=== PATIENT | male | born 1950 | race Caucasian/White ===

== ENCOUNTER 2017-01-05 21:08 | Emergency (ER) | payer MEDICARE, BC ==
[~2017-01-05] VITALS: Ht 182.9 cm; Wt 99.0 kg
[2017-01-05 21:08] VITALS: Ht 182.9 cm; Wt 99.0 kg
--- OUTSIDE RECORDS SUMMARY | 2017-01-05 21:12 | XMS REPORT | Summary of Care ---
Author Author Rick CONTEH, Anjelica Organization Unknown Address [address], [place] [id number] Phone Unavailable Care Team Providers Care Instrument Repair Supervisor Name Role Phone Andrew Brady, GIUSEPPE, ,, [place] Unavailable Unavailable Kylie Strong Unavailable Unavailable Unavailable Unavailable Functional Status Name Dates Details Functional status health issues are not documented Status: Name Dates Details Cognitive status health issues are not documented Status: Problems Name Dates Details Cellulitis Hands Right Status: Active Abdominal pain, epigastric (789.06, R10.13) Status: Active Diabetes mellitus (250.00, E11.9) Status: Active Aphthous ulcer (528.2, K12.0) Status: Active Herpes zoster (053.9, B02.9) Status: Active Elevated prostate specific antigen (PSA) (790.93, R97.2) Status: Active Pelvic pain in male (789.09, R10.2) Status: Active Benign prostatic hypertrophy (600.00, N40.0) Status: Active Chronic prostatitis (601.1, N41.1) Status: Active Pseudophakia of right eye (V43.1, Z96.1) Status: Active ERM OD (epiretinal membrane, right eye) (362.56, H35.371) Status: Active Medications Name Dates Details Terazosin HCl - 2 MG Oral Capsule Take one capsule by mouth daily Quantity: 90 Andrew Brady, GIUSEPPE, , Philip * Start 03-Jun-2016 Active Multivitamins Oral Capsule * Refills: 0 * Start 17-Aug-2012 Active Fish Oil 1000 MG Oral Capsule * Refills: 0 * Start 17-Aug-2012 Active GlipiZIDE 5 MG Oral Tablet * Refills: 0 * Start 17-Aug-2012 Active Losartan Potassium 25 MG Oral Tablet * Refills: 0 * Start 17-Aug-2012 Active Saw [place] 450 MG Oral Capsule * Refills: 0 * Start 17-Aug-2012 Active Simvastatin 10 MG Oral Tablet * Refills: 0 Active Finasteride 5 MG Oral Tablet take one tablet by mouth every day * Quantity: 90 Refills: 3 Andrew Brady, GIUSEPPE, , , Philip M * Start 08-Sep-2013 Active Hyophen 81.6 MG Oral Tablet Take one tablet twice daily * Quantity: 180 Refills: 3 Andrew Brady, GIUSEPPE, , , Philip M * Start 17-Feb-2015 Active Aspirin Low Dose 81 MG TABS * Refills: 0 Active Allergies and Adverse Reactions Name Dates Details No Known Drug Allergies (Allergy) Status: Active Past Medical History Name Dates Details History of 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.19, H25.811) Status: Resolved History of Nephrolithiasis (V13.01) Status: Resolved History of Reported Cholesterol Level Was High Status: Resolved History of sleep apnea (V13.89, Z87.09) Status: Resolved Procedures Procedure Dates Details History of Diagnostic Esophagogastroduodenoscopy Completed: 29-Dec-2009 History of Complete Colonoscopy For Polyp Removal Completed: 03-Jan-2010 History of Appendectomy History of Knee Arthroscopy History of Extracaps Cataract Extract With Prosthesis Insert Right Eye Procedures not documented Immunization Name Dates Details Immunizations not documented Family History Name Dates Details Family history of Hypertension (V17.49) Status: Active Family history of Diabetes Mellitus (V18.0) Status: Active Family history of Cancer Status: Active Social History Name Dates Details - Status: Name Dates Details Never smoker Vital Signs Date Test Result Details No Known Vitals to report Results Date Description Value Details Results not documented Plan of Care Name Dates Details Planned Observations Planned Goals not documented Interventions Provided Medication Changes* Terazosin HCl - 2 MG Oral Capsule - Renew Instructions Name Dates Details Instructions not documented Encounters Appointment; Judah Ma M.D. Encounter Diagnosis: Problem not documented On 19-Dec-2015 14:15 Appointment; Judah Ma M.D. Encounter Diagnosis: Problem not documented On 29-Sep-2015 13:30 Appointment; Judah Ma M.D. Encounter Diagnosis: Problem not documented On 19-Sep-2015 16:15 Appointment; Judah Ma M.D. Encounter Diagnosis: Problem not documented On 19-Sep-2015 11:15 Appointment; Judah Ma M.D. Encounter Diagnosis: Problem not documented On 05-Sep-2015 08:15 Appointment; Judah Ma M.D. Encounter Diagnosis: Problem not documented On 22-Aug-2015 14:30 Appointment; Philip Morales M.D.|[place]|Jose Antonio,GIUSEPPE|Jose Antonio,GIUSEPPE, Encounter Diagnosis: Problem not documented On 10:45"
--- OUTSIDE RECORDS SUMMARY | 2017-01-05 21:12 | XMS REPORT | Referral Summary ---
Author Organization Unknown Address Unknown Phone Unavailable Care Team Providers Care Pot Room Supervisor Name Role Phone LigiaEvy Primary Care Physician [phone] Encounter VC Date(s): 12/01/14 - 12/01/14 [facility] [place] [address], [facility] [address] [place], [place] [address] Discharge Diagnosis: Obstructive sleep apnea, adult Discharge Disposition: Home or Self Care Attending Physician: Philip Zapata MD Admitting Physician: Philip Zapata MD Vital Signs Most recent to 1 oldest [Reference Range]: Peripheral Pulse 67 bpm Rate [60-100 bpm] (12/01/14 10:41 AM) Blood Pressure 130/70 mmHg [90-140/60-90 mmHg] (12/01/14 10:41 AM) Most recent to 1 oldest [Reference Range]: SpO2 93 % (12/01/14 10:41 AM) Problem List Condition Effective Dates Status Health Status Informant Obesity(Confirmed) Active patient Obstructive sleep Active apnea, adult(Confirmed) Allergies, Adverse Reactions, Alerts No Known Medication Allergies Medications finasteride 5 mg oral tablet 1 tabs, Oral, Daily, # 30 tabs, 0 Refill(s) Start Date: 08/25/14 Status: Ordered glipiZIDE 5 mg oral tablet 1.5 tabs, Oral, Daily, as directed, # 30 tabs, 0 Refill(s) Special Instructions: as directed Start Date: 08/25/14 Status: Ordered losartan 100 mg oral tablet 1 tabs, Oral, Daily, # 30 tabs, 0 Refill(s) Start Date: 08/25/14 Status: Ordered simvastatin 10 mg oral tablet 1 tabs, Oral, Bedtime (once a day), # 30 tabs, 0 Refill(s) Start Date: 08/25/14 Status: Ordered terazosin 2 mg oral capsule 1 caps, Oral, Bedtime (once a day), # 30 caps, 0 Refill(s) Start Date: 08/25/14 Status: Ordered Results No data available for this section Immunizations No data available for this section Procedures No data available for this section Social History Social History Type Response Smoking Status Never smoker Assessment and Plan Extracted from: Title: Office Visit Note Author: Philip Zapata MD Date: 12/01/14 Assessment/Plan Obstructive sleep apnea, adult Assessment: The patient is complying with treatment and he is benefiting. He meets Medicare requirements for ongoing treatment. No changes are needed. Plan: We reviewed his compliance download together. He is going to continue CPAP at the current pressure. He prefers a PRN return. He will be in touch if there are any problems.
--- OUTSIDE RECORDS SUMMARY | 2017-01-05 21:12 | XMS REPORT | Continuity of Care Document ---
Author Author [facility] Organization [facility] Address Unknown Phone Unavailable Allergies Active Description Code Type Severity Reaction Onset Reported/Identified Relationship to Patient Clinical Status Yes NKA Drug Allergy N/A N/A Yes No Known Allergies [id number] 3 N/A N/A 09/18/1009 Yes No Known Medication Allergies NKMA N/A N/A 08/25/2014 Medications Problems Date Dx Coded Attending Type Code Diagnosis Diagnosed By 02/26/2016 W G89.29 Other chronic pain 02/26/2016 W M25.512 Chronic left shoulder pain 02/26/2016 W M75.02 Adhesive capsulitis of left shoulder 03/11/2016 W G89.29 Other chronic pain 03/11/2016 W M25.512 Chronic left shoulder pain 03/11/2016 W M75.02 Adhesive capsulitis of left shoulder 04/01/2016 W G89.29 Other chronic pain 04/01/2016 W M25.512 Chronic left shoulder pain 04/01/2016 W M75.02 Adhesive capsulitis of left shoulder 04/02/2016 W G89.29 Other chronic pain 04/02/2016 W M25.512 Chronic left shoulder pain 04/02/2016 W M75.02 Adhesive capsulitis of left shoulder 04/02/2016 W M75.122 Complete tear of left rotator cuff 04/08/2016 W G89.29 Other chronic pain 04/08/2016 W M25.512 Chronic left shoulder pain 04/08/2016 W M75.02 Adhesive capsulitis of left shoulder 04/18/2016 W M25.9 Joint disorder, unspecified 04/18/2016 W M75.02 Adhesive capsulitis of left shoulder 04/18/2016 W M75.122 Complete rotatr-cuff tear/ruptr of left shoulder, not trauma 04/18/2016 W M75.42 Impingement syndrome of left shoulder 04/19/2016 W G89.29 Other chronic pain 04/19/2016 W M25.512 Chronic left shoulder pain 04/19/2016 W M75.02 Adhesive capsulitis of left shoulder 05/24/2016 W G89.29 Other chronic pain 05/24/2016 W M25.512 Chronic left shoulder pain 05/24/2016 W M75.02 Adhesive capsulitis of left shoulder 05/29/2016 W Z98.89 S/P rotator cuff repair 06/21/2016 W G89.29 Other chronic pain 06/21/2016 W M25.512 Chronic left shoulder pain 06/21/2016 W M75.02 Adhesive capsulitis of left shoulder 07/29/2016 W G89.29 Other chronic pain 07/29/2016 W M25.512 Chronic left shoulder pain 07/29/2016 W M75.02 Adhesive capsulitis of left shoulder Procedures Code Description [place] [address] X-RAY EXAM OF SHOULDER 02/26/2016 08059 OFFICE/OUTPATIENT VISIT NEW 02/26/2016 28884 OFFICE/OUTPATIENT VISIT EST 04/01/2016 04461 SHOULDER ARTHROSCOPY/SURGERY 04/11/2016 14128 SHOULDER ARTHROSCOPY/SURGERY 04/11/2016 82251 SHOULDER ARTHROSCOPY/SURGERY 04/11/2016 96944 ARTHROSCOP ROTATOR CUFF REPR 04/11/2016 26916 X-RAY EXAM OF SHOULDER 05/24/2016 36062 POSTOP FOLLOW-UP VISIT 05/24/2016 Results Encounters ACCT No. Visit Date/Time Discharge Status Pt. Type Provider Facility Loc./Unit Complaint [id number] 09/05/2016 09:23:00 2015 11:52:00 DIS Outpatient Shaquille Gonzalez [facility] COLONP [id number] 08/16/2016 13:14:00 2015 23:59:00 DIS Outpatient Galdino Francis [facility] CP PST DIANE PT 2014 CPAP NEEDS SUPPLIES [id number] 12/01/2014 10:34:00 2014 23:59:00 DIS Outpatient Philip Zapata [facility] New 2 MO CK CPAP-MC CMPLNCE
--- OUTSIDE RECORDS SUMMARY | 2017-01-05 21:12 | XMS REPORT | Summary of Care ---
Author Author Andrew Brady, GIUSEPPE, ,, Philip M Organization Unknown Address [address] [place], [place] [id number] Phone Unavailable Care Team Providers Care Resolution Specialist Name Role Phone Andrew Brady, GIUSEPPE, ,, M Unavailable Unavailable Freddie Brady, Elayne Unavailable Unavailable Anjelica Cabrera PA-C Unavailable Unavailable Kylie Strong PP Unavailable Unavailable Unavailable Functional Status Functional Status Health Issues* Name Dates Details Functional status health issues are not documented Status: Cognitive Status Health Issues* Name Dates Details Cognitive status health issues are not documented Status: Problems Name Dates Details Cellulitis Hands Right Status: Active Abdominal pain, epigastric (789.06, R10.13) Status: Active Diabetes mellitus (250.00, E11.9) Status: Active Aphthous ulcer (528.2, K12.0) Status: Active Herpes zoster (053.9, B02.9) Status: Active Elevated prostate specific antigen (PSA) (790.93, R97.2) Status: Active Benign prostatic hypertrophy (600.00, N40.0) Status: Active Pelvic pain in male (789.09, R10.2) Status: Active Medications Name Dates Details Terazosin HCl - 2 MG Oral Capsule TAKE 1 CAPSULE DAILY. Tia Frazier M.D.* Started 16-Jan-2010 ActiveMultivitamins Oral Capsule * Refills: 0 * Started 17-Aug-2012 ActiveFish Oil 1000 MG Oral Capsule * Refills: 0 * Started 17-Aug-2012 ActiveGlipiZIDE 5 MG Oral Tablet * Refills: 0 * Started 17-Aug-2012 ActiveLosartan Potassium 25 MG Oral Tablet * Refills: 0 * Started 17-Aug-2012 ActiveSaw [place] 450 MG Oral Capsule * Refills: 0 * Started 17-Aug-2012 ActiveSimvastatin 10 MG Oral Tablet * Refills: 0 ActiveFinasteride 5 MG Oral Tablet take one tablet by mouth every day * Quantity: 90 Refills: 1 Anjelica Cabrera PA-C* Started 08-Sep-2013 ActiveHyophen 81.6 MG Oral Tablet Take one tablet twice daily * Quantity: 180 Refills: 3 Philip Morales M.D., FACS, , * Started 17-Feb-2015 Active Allergies and Adverse Reactions Name Dates Details No Known Drug Allergies Status: Active Past Medical History Name Dates Details History of Nephrolithiasis (V13.01) Status: Resolved History of Reported Cholesterol Level Was High Status: Resolved History of sleep apnea (V13.89, Z87.898) Status: Resolved Procedures Procedure Dates Details History of Diagnostic Esophagogastroduodenoscopy Completed:29-Dec-2009 History of Complete Colonoscopy For Polyp Removal Completed:03-Jan-2010 History of Appendectomy History of Knee Arthroscopy PSA ( PROSTATE SPECIFIC ANTIGEN) 3100 Ordered: Immunization Name Dates Details Immunizations not documented Family History Mother* Name Dates Details Family history of Hypertension (V17.49) Status: Active Family history of Diabetes Mellitus (V18.0) Status: Active Family history of Cancer Status: Active Social History Name Dates Details Smoking Status* Never smoker Vital Signs Date Test Result Details No Known Vitals to report Results Date Description Value Details Results not documented Plan of Care Planned Observations* Name Dates Details Planned Goals not documented Goal Planned Encounters* Appointment; Provider: Philip Morales On 10:45 Instructions * Instructions not documented Encounters Appointment; Philip Morales Encounter Diagnosis: Problem not documented On 10:15 Appointment; Philip Morales Encounter Diagnosis: Problem not documented On 10:15 Appointment; Philip Morales Encounter Diagnosis: Problem not documented On 08-Sep-2013 14:15 Appointment; Philip Morales Encounter Diagnosis: Problem not documented On 01-Sep-2013 12:30 Appointment; Philip Morales Encounter Diagnosis: Problem not documented On 11-Aug-2013 10:00
--- OUTSIDE RECORDS SUMMARY | 2017-01-05 21:13 | XMS REPORT ---
Author Author GENERATED, SYSTEM Organization Unknown Address Unknown Phone Unavailable Care Team Providers Care Infirmary Attendant Name Role Phone MD ANYA, MARIO [phone] Reason For Visit Chief Complaint FOOT PAIN Social History Functional Status Vital Signs Results Problems Encounter Diagnosis No relevant problems exist. Encounters Encounter Diagnosis No relevant problems exist. Plan of Care Procedures * Completed , on 12/05/2010 12:00 AM * Completed , on 12/05/2010 12:00 AM * Completed , on 12/05/2010 12:00 AM Immunizations No immunizations administered or ordered. Hospital Course Hospital Discharge Instructions Allergies, Adverse Reactions, Alerts * Latex Allergy has not been assessed. * IV Contrast Allergy has not been assessed. Medication Medication reconciliation has not been performed.
--- OUTSIDE RECORDS SUMMARY | 2017-01-05 21:13 | XMS REPORT | Summary of Care ---
Author Author Andrew Brady, GIUSEPPE, ,Philip Organization Unknown Address Unknown Phone Unavailable Care Team Providers Care Sales Closer Name Role Phone Andrew Brady, GIUSEPPE, M Unavailable Unavailable Kylie Strong PP Unavailable Unavailable [...] MG Oral Capsule TAKE 1 CAPSULE DAILY. Quantity: 90 Philip Morales M.D., GIUSEPPE, , * Started 16-Jan-2010 ActiveMultivitamins Oral Capsule * Refills: 0 * Started 17-Aug-2012 ActiveFish Oil 1000 MG Oral Capsule * Refills: 0 * Started 17-Aug-2012 ActiveGlipiZIDE 5 MG Oral Tablet * Refills: 0 * Started 17-Aug-2012 ActiveLosartan Potassium 25 MG Oral Tablet * Refills: 0 * Started 17-Aug-2012 ActiveSaw [place] 450 MG Oral Capsule * Refills: 0 * Started 17-Aug-2012 ActiveSimvastatin 10 MG Oral Tablet * Refills: 0 ActiveFinasteride 5 MG Oral Tablet take one tablet by mouth every day * Quantity: 90 Refills: 3 Philip Morales M.D., GIUSEPPE, , * Started 08-Sep-2013 ActiveHyophen 81.6 MG Oral Tablet Take one tablet twice daily * Quantity: 180 Refills: 3 Philip Morales M.D., GIUSEPPE, , * Started 17-Feb-2015 ActiveAspirin Low Dose 81 MG TABS * Refills: [...] Dates Details Planned Goals not documented Goal Instructions * Instructions not documented Encounters Appointment; Judah Ma Encounter Diagnosis: Problem not documented On 19-Dec-2015 14:15 Appointment; Judah Ma Encounter Diagnosis: Problem not documented On 29-Sep-2015 13:30 Appointment; Judah Ma Encounter Diagnosis: Problem not documented On 19-Sep-2015 16:15 Appointment; Judah Ma Encounter Diagnosis: Problem not documented On 19-Sep-2015 11:15 Appointment; Judah Ma Encounter Diagnosis: Problem not documented On 05-Sep-2015 08:15 Appointment; Judah Ma Encounter Diagnosis: Problem not documented On 22-Aug-2015 14:30 Appointment; Philip Morales Encounter Diagnosis: Problem not documented On 10:45
--- OUTSIDE RECORDS SUMMARY | 2017-01-05 21:13 | XMS REPORT | Summary of Care ---
Author Author Andrew Brady, GIUSEPPE, ,, Philip M Organization Unknown Address [address] [place], [place] [id number] Phone Unavailable Care Team Providers Care Camera Prototyping Engineer Name Role Phone Andrew Brady, GIUSEPPE, ,, [place] Unavailable Unavailable Freddie Brady, Elayne Unavailable Unavailable [...] * Refills: 0 * Started 17-Aug-2012 ActiveSaw [place] 450 MG Oral Capsule * Refills: 0 * Started 17-Aug-2012 ActiveSimvastatin 10 MG Oral Tablet * Refills: 0 ActiveCiprofloxacin HCl - 500 MG Oral Tablet TAKE ONE CIPRO 500MG ONE HOUR BEFORE PROCEDURE. TAKE ONE THE EVENING AFTER PROCEDURE AND ONE THE FOLLOWING MORNING * Quantity: 3 Refills: 0 Philip Morales M.D., FACS, , * Started 11-Aug-2013 ActiveFinasteride 5 MG Oral Tablet take one tablet by mouth every day * Quantity: 90 Refills: 1 Anjelica Cabrera PA-C* Started 08-Sep-2013 Active Allergies and Adverse Reactions Name Dates [...] History of Appendectomy History of Knee Arthroscopy URINE CULTURE 5010 Ordered:21-Dec-2014 Immunization Name Dates Details Immunizations not documented [...]
--- OUTSIDE RECORDS SUMMARY | 2017-01-05 21:13 | XMS REPORT | Referral Summary ---
Author Author [facility] Organization [facility] Address Unknown Phone Unavailable Care Team Providers Care Photo Journalist Name Role Phone LigiaEvy Primary Care Physician [phone] Encounter VC Date(s): 09/05/16 - 09/05/16 [facility] [address] [place] [address] Discharge Diagnosis: Screening for colorectal cancer Discharge Diagnosis: History of colon polyps Discharge Disposition: 01-Home or Self Care Attending Physician: Shaquille Gonzalez III, MD Admitting Physician: Shaquille Gonzalez III, MD Vital Signs Most recent to 1 oldest [Reference Range]: Temperature Oral 36.7 degC [35.8-37.3 degC] (09/05/16 9:50 AM) Peripheral Pulse 85 bpm Rate [60-100 bpm] (09/05/16 9:50 AM) Respiratory Rate 22 br/min [14-20 br/min] *HI* (09/05/16 9:50 AM) Blood Pressure 127/76 mmHg [90-140/60-90 mmHg] (09/05/16 9:50 AM) SpO2 97 % (09/05/16 9:50 AM) Problem List Condition Effective Dates Status Health Status Informant Obesity(Confirmed) Active patient Obstructive sleep Active apnea, adult(Confirmed) Allergies, Adverse Reactions, Alerts No Known Medication Allergies Medications aspirin 81 mg oral tablet mg tabs, Oral, Daily, 0 Refill(s) Start Date: 08/16/16 Status: Ordered finasteride 5 mg oral tablet 1 tabs, Oral, Daily, # 30 tabs, 0 Refill(s) Start Date: 08/25/14 Status: Ordered glipiZIDE 5 mg oral tablet 1.5 tabs, Oral, Daily, as directed, # 30 tabs, 0 Refill(s) Start Date: 08/25/14 Status: Ordered losartan 100 [...] Refill(s) Start Date: 08/25/14 Status: Ordered Results Chemistry Most recent to 1 oldest [Reference Range]: Blood Glucose, 105 mg/dL Capillary [74-106 (09/05/16 9:51 AM) mg/dL] Immunizations No data available for this section Procedures No data available for this section Social History Social History Type Response Smoking Status Never smoker Assessment and Plan No data available for this section
--- OUTSIDE RECORDS SUMMARY | 2017-01-05 21:13 | XMS REPORT | Referral Summary ---
Author Author [facility] [employer] Organization [facility] [place] Address Unknown Phone Unavailable Care Team Providers Care Assistant Manager Trainee Name Role Phone Ligia Evy Primary Care Physician [phone] Encounter VC Date(s): 08/16/16 - 08/16/16 [facility] [place] [address] [place] [address] [place] Discharge Diagnosis: Obstructive sleep apnea, adult Discharge Diagnosis: Obesity Discharge Disposition: 01-Home or Self Care Attending Physician: Galdino Francis MD Admitting Physician: Galdino Francis MD Vital Signs Most recent to 1 oldest [Reference Range]: Peripheral Pulse 55 bpm Rate [60-100 bpm] *LOW* (08/16/16 1:37 PM) Blood Pressure 152/68 mmHg [90-140/60-90 mmHg] *HI* (08/16/16 1:37 PM) SpO2 93 % (08/16/16 1:37 PM) Problem List Condition Effective Dates Status Health [...] 0 Refill(s) Start Date: 08/25/14 Status: Ordered NuLYTELY with Flavor Packs oral powder for reconstitution 240 mL, Oral, q15min, TAKE DIRECTED, # 4,000 mL, 0 Refill(s), Pharmacy: [facility] #[id number] Start Date: 08/12/16 Status: Ordered simvastatin 10 mg oral tablet [...] Extracted from: Title: Office Visit Note Author: Galdino Francis MD Date: 08/16/16 Assessment/Plan 1.Obstructive sleep apnea, adult Obstructive Sleep Apnea - due to the patient's: Patient States feeling less tired since using PAP therapy.Patient was encouraged to PAP every night for the entire duration oftheir sleep, including during naps and to take it withthem when traveling, admitted to a hospital or undergoing surgery.The patient is using the PAP device_ greater than 4 hours per night and is benefiting from its use. -Patient was counseled not to drive or operate heavy machinery if feeling sleepy or otherwise impaired and advised of counter-measures, including having somebody else drive, taking a nap until feeling refreshed or consuming a caffeinated beverage. - Follow up in_ months The pathophysiology of obstructive sleep apnea was discussed in detail. I explained that the treatment of choice for mild, moderate, and severe ILENE is the positive pressure device, and revealed about the untreated consequences. The patient was advised to avoid driving and other hazardous activities if feeling tired, drowsy or otherwise impaired. 2.Obesity counseled on the importance of proper diet and routine exercise. A decrease in weight and BMI may lessen the severity of sleep apnea. If there is a 10% or more change in weight status, this may require PAP machine pressure adjustment. We discussed improving nutrition and making exercise plans.
--- OUTSIDE RECORDS SUMMARY | 2017-01-05 21:13 | XMS REPORT | Summary of Care ---
Author Author Rick CONTEH, Anjelica Organization Unknown Address [address], [place] [id number] Phone Unavailable Care Team Providers Care Roll Forming Machine Set Up Mechanic Name Role Phone Andrew Brady, GIUSEPPE, ,, M Unavailable Unavailable Kylie Strong PP Unavailable [...] Active Chronic prostatitis (601.1, N41.1) Status: Active Medications Name Dates Details Terazosin HCl - 2 MG Oral Capsule TAKE 1 CAPSULE DAILY. Quantity: 90 Philip Morales M.D., FACS, , * Started 16-Jan-2010 ActiveMultivitamins Oral Capsule * Refills: 0 * Started 17-Aug-2012 ActiveFish Oil 1000 MG Oral Capsule * Refills: 0 * Started 17-Aug-2012 ActiveGlipiZIDE 5 MG Oral Tablet * Refills: 0 * Started 17-Aug-2012 ActiveLosartan Potassium 25 MG Oral Tablet * Refills: 0 * Started 17-Aug-2012 ActiveSaw [place] 450 MG Oral Capsule * Refills: 0 [...] Started 17-Feb-2015 ActiveAspirin Low Dose 81 MG Oral Tablet * Refills: 0 Active Allergies and Adverse [...] History of Appendectomy History of Knee Arthroscopy Procedures not documented Immunization Name Dates Details Immunizations not documented Family History Mother* Name Dates Details Family history of Hypertension (V17.49) Status: Active Family history of Diabetes Mellitus (V18.0) Status: Active Family history of Cancer Status: Active Social History Name Dates Details Smoking Status* Never smoker Vital Signs Date Test Result Details No Known Vitals to report Results Date Description Value Details 13:01 PSA ( PROSTATE SPECIFIC ANTIGEN) 3100 PROSTATE SPECIFIC ANTIGEN 0.960 ng/mL (Better) Range: 0.000-4.000 Plan of Care Planned Observations* Name Dates Details Planned Goals not documented Goal Planned Encounters* Appointment; Provider: Philip Morales On 10:45 Instructions * Instructions not documented Encounters Appointment; Philip Morales Encounter Diagnosis: Problem not documented On 10:45 Appointment; Philip Morales Encounter Diagnosis: Problem not documented On 10:15 Appointment; Philip Morales Encounter Diagnosis: Problem not documented On 10:15 Appointment; Philip Morales Encounter Diagnosis: Problem not documented On 08-Sep-2013 14:15 Appointment; Philip Morales Encounter Diagnosis: Problem not documented On 01-Sep-2013 12:30 Appointment; Philip Morales Encounter Diagnosis: Problem not documented On 11-Aug-2013 10:00
--- OUTSIDE RECORDS SUMMARY | 2017-01-05 21:13 | XMS REPORT | Summary of Care ---
Author Author Anjelica Cabrera PA-C Organization Unknown Address [address], [place] [id number] Phone Unavailable Care Team Providers Care Emergency Vehicle Operations Instructor Name Role Phone Andrew Brady, GIUSEPPE, ,, M Unavailable Unavailable Freddie Brady, J Unavailable Unavailable Anjelica Cabrera PA-C Unavailable Unavailable Lv Cuellar PP Unavailable Unavailable Unavailable Functional Status Functional [...] Benign prostatic hypertrophy (600.00, N40.0) Status: Active Medications Name Dates Details Terazosin [...] * Refills: 0 * Started 17-Aug-2012 ActiveSaw [place] 450 MG Oral Capsule * Refills: 0 * Started 17-Aug-2012 ActiveSimvastatin 10 MG Oral Tablet * Refills: 0 ActiveCiprofloxacin HCl - 500 MG Oral Tablet TAKE ONE CIPRO 500MG ONE HOUR BEFORE PROCEDURE. TAKE ONE THE EVENING AFTER PROCEDURE AND ONE THE FOLLOWING MORNING * Quantity: 3 Refills: 0 Philip Morales M.D., GIUSEPPE, , * Started 11-Aug-2013 ActiveFinasteride 5 MG [...]
--- NOTE | 2017-01-05 21:21 | ERPDOC ---
Departure Disposition Decision Date: Jan 05, 2017 Disposition Decision Time: 22:22 Disposition: 01 DISCHARGED HOME, SELF-CARE Impression Impression Impression: Primary Impression: Palpitations Severity: Moderate Condition: Improved Seen By: Physician only Referrals: MARIO JOYNER (Family) Patient Instructions: Palpitations (ED) Problems/Meds/Labs Reviewed?: Yes Medications reviewed and manag: Yes Additional Instructions: Take your routine medications, diet, and activities See your doctor later this week for recheck, or return to ER for any worsening Follow up care ordered?: Yes Mental Status: Alert HPI - Cardiac General Chief Complaint: Cardiac Complaint Stated Complaint: HEART PALPITATIONS Time Seen by Provider: 21:14 Source: patient, family Exam Limitations: no limitations HPI - Cardiac General Initial Comments Sudden onset of palpitations with the perception of a skipped heartbeat one to 2 hours ago. Patient checked his blood pressure, noticed that his pulse was irregular, so he came to the ER. Now the symptoms have essentially resolved. Patient has had no shortness of breath, diaphoresis, chest discomfort, or abdominal complaint. History of similar symptoms History of high blood pressure, high cholesterol, and a normal stress test last year Occurred At: home Onset/Timing: Rapid Duration: 1-3 hrs Severity: mild Location: substernal Prior CP/Workup: no prior chest pain Nitro Today/Relief: no nitro taken today Aspirin Today: unknown Associated Symptoms: DENIES: chest pain, cough, diaphoresis, fever/chills, headaches, loss of appetite, malaise, nausea/vomiting, rash, seizure, shortness of breath, syncope, weakness Hx of Similar Symptoms: No Allergies: Coded Allergies: No Known Allergies (Unverified , 01/05/17) Past History Past Medical History Metabolic: diabetes (NIDDM), hypercholesterolemia, hypertension Surgical History Denies Surgeries Social History Smoking Status: Never smoker Does patient use chewing tobac: No Second Hand Exposure: No Substance Use Type: does not use Alcohol Intake: none Record Review Pertinent history updated: Yes Review of Systems Constitutional Constitutional: DENIES: anorexia, appetite decrease, appetite increase, chills , dizziness, fatigue, fever, night sweats, syncope, weakness ENMT Ears: DENIES: pain Hearing: DENIES: hearing loss, tinnitus Balance: DENIES: vertigo Mouth/Throat: DENIES: change in swallowing, change in voice, hoarsness, painful swallowing, sore throat Cardiovascular Cardiac: DENIES: chest pain, dyspnea on exertion Rhythm/Rate: palpitations, DENIES: irregular beat, tachycardia Vascular: DENIES: pedal edema Pulmonary Respiratory: DENIES: cough, dyspnea, pleuritic chest pain GI Upper Abdomen: DENIES: dysphagia, heartburn/indigestion, nausea, pain, vomiting Lower Abdomen: DENIES: blood in stool, constipation, diarrhea, pain General: DENIES: burning, dysuria, frequency, pain, urgency Musculoskeletal General: DENIES: cramps, joint pain, joint swelling, pain, weakness Integumentary Skin: DENIES: rash, sores Neurological General: DENIES: headache, numbness, tingling, vertigo, weakness Psychiatric Psychiatric: DENIES: anxiety, depression, nervousness Physical Exam General General Nourishment: well nourished, well developed, appears stated age, no acute distress General Body Habitus: well groomed Vitals and Pain First Documented Vital Signs Date Time Temp Pulse Resp B/P Pulse Ox O2 Delivery O2 Flow Rate FiO2 01/05/17 21:08 68 18 185/89 94 Room Air Weight: Kilograms: Height (feet): 6 Height (inches): Triage Pain Scale: RN VS reviewed by Provider: Yes Normal Exams: Head: Normocephalic w/o trauma Eyes: Pupils are PERRLA w/ EOMI, No scleral icterus, irritation, or foreign bodies noted ENMT: No facial trauma, nasal exudates, pharyngeal erythema, or exudates are noted Neck: Full range of motion, without adenopathy, JVD, bruits or thyromegaly Chest/Resp: Clear all barn[place], with good airflow, and symmetry bilaterally CV: Regular rate and rhythm, without murmur or gallop, Pulses 2+ all extremities, capillary refill, <2 seconds all ext., no pedal edema noted Abdomen: Bowel sounds positive, soft, non-tender, non-distended, no hepatosplenomegaly, masses or bruits noted Lymphatic: No lymphadenopathy, or lymphedema noted Musculoskeletal: No tenderness, or deformity noted, good range of motion, all extremities Integumentary: No rashes, hives, or bruising noted, hair and nails, without abnormality Neurologic: Patient is alert, and oriented, cranial nerves, motor/sensory/ cerebellar, exams w/o gross deficits, to observation Psychiatric: Patient exhibits, appropriate attention, emotion and affect Progress Results/Orders Orders Procedure Category Date Status Time Cbc W/Auto LAB 01/05/17 Complete Diff-Reflex Manual 21:18 Cmp - Comprehensive LAB 01/05/17 Complete Metabolic 21:18 Troponin I W LAB 01/05/17 Complete Hemolysis Index 21:18 EKG EKG 01/05/17 Taken 21:18 Iv Lock (Ed Only) EDM 01/05/17 Transmitted 21:18 Normal Saline (Normal PHA 01/05/17 Complete Saline Iv) 21:30 Lab Results Laboratory Tests Test 01/05/17 21:25 White Blood Count 6.7T/MM3 Red Blood Count 4.71M/MM3 Hemoglobin 14.4GM/DL Hematocrit 42.2% Mean Corpuscular Volume 89.6UM3 Mean Corpuscular Hemoglobin 30.6UUG Mean Corpuscular Hemoglobin Concent 34.1GM/DL RDW Standard Deviation 42.6FL Platelet Count 194T/MM3 Mean Platelet Volume 9.3UM3 Immature Granulocyte % (Auto) 0.3% Neutrophils (%) (Auto) 64.0% Lymphocytes (%) (Auto) 23.2% Monocytes (%) (Auto) 9.2% Eosinophils (%) (Auto) 2.7% Basophils (%) (Auto) 0.6% Absolute Immature Granulocyte (auto 0.02T/MM3 Absolute Neutrophils (auto) 4.3T/MM3 Absolute Lymphocytes (auto) 1.6T/MM3 Absolute Monocytes (auto) 0.6T/MM3 Absolute Eosinophils (auto) 0.2T/MM3 Absolute Basophils (auto) 0.0T/MM3 Turbidity 28 Sodium Level 142MEQ/L Potassium Level 4.1MEQ/L Chloride Level 109MEQ/L Carbon Dioxide Level 23MEQ/L Anion Gap 10MEQ/L Blood Urea Nitrogen 23.0MG/DL Creatinine 1.2MG/DL Glomerular Filtration Rate Calc 60 BUN/Creatinine Ratio 19RATIO Glucose Level 209MG/DL Calculated Osmolality 283MOSM/KG Calcium Level 9.2MG/DL Total Bilirubin 0.70MG/DL Icterus Index < 2 Aspartate Amino Transf (AST/SGOT) 26U/L Alanine Aminotransferase (ALT/SGPT) 30U/L Alkaline Phosphatase 127U/L Troponin I < 0.012ng/ml Total Protein 6.7G/DL Albumin 3.7G/DL Globulin 3.0G/DL Albumin/Globulin Ratio 1.2RATIO Chemistry Specimen Hemolysis < 15 Medications Current ED Medications Sodium Chloride (Normal Saline IV) 1,000 ml @ 0 mls/hr Q0M ONCE IV Last administered on 01/05/17t 21:54; Start 01/05/17 at 21:30; Stop 01/05/17 at 21:31 ; Status DC Progress Progress CBC, CMP normal Troponin normal EKG shows normal sinus rhythm without ischemia, ectopy, or infarction. Observation on the monitor for over 60 minutes showed no ectopy, no symptom return ZAYRA FUENTES MD Jan 05, 2017 21:21
[2017-01-05] MEDS ORDERED: NORMAL SALINE 1,000 ML IV ONE (21:30)
[2017-01-05 21:40] LABS: BASOPHILS % (AUTO) 0.6 % (0-2); EOSINOPHILS # (AUTO) 0.2 T/MM3 (0-0.5); EOSINOPHILS % (AUTO) 2.7 % (0-4); HCT - HEMATOCRIT 42.2 % (41-53); HGB - HEMOGLOBIN 14.4 GM/DL (13.5-17.5); IMMATURE GRANULOCYTE # (AUTO) 0.02 T/MM3 (0.00-0.03); IMMATURE GRANULOCYTE % (AUTO) 0.3 % (0.0-0.5); LYMPHOCYTES # (AUTO) 1.6 T/MM3 (1-4.8); LYMPHOCYTES % (AUTO) 23.2 % (23-45); MEAN CORPUSCULAR HGB 30.6 UUG (26-34); MEAN CORPUSCULAR HGB CONC(MCHC 34.1 GM/DL (31-37); MEAN CORPUSCULAR VOLUME 89.6 UM3 (80-100); MEAN PLATELET VOLUME 9.3 UM3 (9.4-12.4); MONOCYTES # (AUTO) 0.6 T/MM3 (0-0.8); MONOCYTES % (AUTO) 9.2 % (0-9.0); NEUTROPHILS #(AUTO)-ABSOLUTE 4.3 T/MM3 (1.8-7.7); RED BLOOD COUNT 4.71 M/MM3 (4.50-5.90); WBC - WHITE BLOOD COUNT 6.7 T/MM3 (4.5-11.0)
[2017-01-05 21:50] LABS: ALBUMIN 3.7 G/DL (3.5-5.0); ALBUMIN/GLOBULIN RATIO 1.2 RATIO (1.1-2.2); ALKALINE PHOSPHATASE 127 U/L (38-126); ALT (SGPT) 30 U/L (21-72); ANION GAP 10 MEQ/L (5-15); AST (SGOT) 26 U/L (17-59); BUN/CREATININE RATIO 19 RATIO (6-26); CALCIUM 9.2 MG/DL (8.4-10.2); CHLORIDE 109 MEQ/L (98-107); CO2 - CARBON DIOXIDE 23 MEQ/L (22-30); CREATININE 1.2 MG/DL (0.8-1.5); GLOMERULAR FILTRATION RATE 60; GLUCOSE 209 MG/DL (75-110); POTASSIUM 4.1 MEQ/L (3.6-5); SODIUM 142 MEQ/L (134-144); TOTAL PROTEIN 6.7 G/DL (6.3-8.2)
[2017-01-05 22:30] VITALS: BP 156/77; PULSE 56; RESP 13; O2SAT 95
--- OUTSIDE RECORDS SUMMARY | 2017-01-05 22:40 | XMS REPORT ---
Author Author GENERATED, SYSTEM Organization Unknown Address Unknown Phone Unavailable Care Team Providers Care Editorial Specialist Name Role Phone MD ANYA, MARIO [phone] Reason For Visit Chief Complaint FOOT PAIN [...]
--- OUTSIDE RECORDS SUMMARY | 2017-01-05 22:40 | XMS REPORT | Continuity of Care Document ---
Author Author [facility] Organization [facility] Address Unknown Phone Unavailable Allergies Active Description Code Type Severity Reaction Onset Reported/Identified Relationship to Patient Clinical Status Yes NKA Drug Allergy N/A N/A Yes No Known Allergies 506121 3 N/A N/A 09/18/1009 Yes No Known [...] Procedures Code [place] [address] X-RAY EXAM OF SHOULDER 02/26/2016 29922 OFFICE/OUTPATIENT VISIT NEW 02/26/2016 41667 OFFICE/OUTPATIENT VISIT EST 04/01/2016 30842 SHOULDER ARTHROSCOPY/SURGERY 04/11/2016 16663 SHOULDER ARTHROSCOPY/SURGERY 04/11/2016 50771 SHOULDER ARTHROSCOPY/SURGERY 04/11/2016 52029 ARTHROSCOP ROTATOR CUFF REPR 04/11/2016 34965 X-RAY EXAM OF SHOULDER 05/24/2016 77749 POSTOP FOLLOW-UP VISIT 05/24/2016 Results Encounters ACCT No. Visit Date/Time Discharge Status Pt. Type Provider Facility Loc./Unit Complaint [id number] 09/05/2016 09:23:00 2015 11:52:00 DIS Outpatient Shaquille Gonzalez [facility] DS Gastro COLONP [id number] 08/16/2016 13:14:00 2015 23:59:00 DIS Outpatient Galdino Francis [facility] Sleep CP PST DIANE PT 2014 CPAP NEEDS SUPPLIES [id number] 12/01/2014 10:34:00 2014 23:59:00 DIS Outpatient Philip Zapata [facility] Sleep New 2 MO CK CPAP-MC CMPLNCE
[2017-01-05] MEDS ORDERED: SIMV10TA6 PO (23:46)
[2017-01-05] MEDS ORDERED: ASPI81TA2 PO (23:46)
[2017-01-05] MEDS ORDERED: TERA2CAP4 PO (23:46)
[2017-01-05] MEDS ORDERED: SILD25TA PO (23:46)
[2017-01-05] MEDS ORDERED: LOSA100T44 PO (23:46)
[2017-01-05] MEDS ORDERED: MULT-1198 PO (23:46)
[2017-01-05] MEDS ORDERED: OMEG-88 PO (23:46)
[2017-01-05] MEDS ORDERED: GLIP2.5T16 PO (23:46)
== END 2017-01-05 23:30 | disposition home or self-care (01) ==
LOC: ED 21:08
DX: R00.2 Palpitations (principal); I10 Essential (primary) hypertension
CPT/HCPCS: 80053; 84484; 85025; 93005; 96360; 99284; J7030

== ENCOUNTER 2017-01-11 19:32 | Emergency (ER) | payer MEDICARE, BC ==
[~2017-01-11] VITALS: Ht 182.9 cm; Wt 96.3 kg
[~2017-01-11 19:32] MED LIST: ASPI81TA2 PO; GLIP2.5T16 PO; LOSA100T44 PO; MULT-1198 PO; OMEG-88 PO; SILD25TA PO; SIMV10TA6 PO; TERA2CAP4 PO
--- OUTSIDE RECORDS SUMMARY | 2017-01-11 19:36 | XMS REPORT | Continuity of Care Document ---
Author Author [facility] Organization [facility] Address Unknown Phone Unavailable Support Name Relationship Address Phone ZAYRA FUENTES MD Caregiver [address] [place] [address] Unavailable MARISELASOPHIE MARIO Caregiver [address] [place] [address] Unavailable CONSTANTINO PRICE Next Of Kin [address] [place] [address] Insurance Providers Guarantor Trent Price Address [address] [place] [address] Email DENIED 01-05-17 [facility] Policy Number [id number] Subscriber's Name Trent Price Relationship 18 Self Group Number [id number] Payer Medicare Policy Number [id number] Subscriber's Name Trent Price Relationship 18 Self Advance Directives Directive Response Recorded Date/Time Advanced Directives Type None 01/05/17 9:08pm Chief Complaint and Reason for Visit Chief Complaint Cardiac Complaint Reason for Visit Palpitations Problems Past Problems Medical Problem Onset Date Palpitations Unknown Medications Current Home Medications Medication Dose Units Route Directions Days Qty Instructions Start Date Aspirin 81 Mg Tab.chew 1 Tab Oral Daily 30 Tablet 01/05/17 Glipizide (Glipizide Xl) 2.5 Mg Tab.er.24 1 Tab Oral Three Times Daily With Meals 01/05/17 Losartan Potassium 100 Mg Tablet 100 Mg Oral Daily 01/05/17 Multivitamin (Multi Vitamin Daily) 1 Each Tablet 1 Tab Oral Daily 01/05/17 Omega3,5,6,7,9 No.1/[place] Oil (Complete [place] Softgel) 1 Each Capsule 01/05/17 Sildenafil Citrate (Viagra) 25 Mg Tablet 1 Tab Oral As Needed Simvastatin 10 Mg Tablet 10 Mg Oral Bedtime Take 1 tablet, by mouth , 1 time a day (at BEDTIME). 01/05/17 Terazosin Hcl 2 Mg Capsule 1 Cap Oral Bedtime 90 Capsule 01/05/17 Social History Query Response Start Date Stop Date Smoking Status Never smoker Hospital Discharge Instructions No hospital discharge instructions. Plan of Care Discharge Date 01/05/17 11:30pm Disposition 01 DISCHARGED HOME, SELF-CARE Condition at Discharge Improved Instructions/Education Provided Palpitations (ED) Prescriptions See Medication Section Referrals MARIO JOYNER Address: [address] [address] Additional Instructions/Education Take your routine medications, diet, and activities See your doctor later this week for recheck, or return to ER for any worsening Care Plan and Goals Physician Care Plan Problem: Transient palpitations Goal: Follow up with primary care provider Instructions: Take medications and follow care plan as discussed/written Take your routine medications, diet, and activities See your doctor later this week for recheck, or return to ER for any worsening Functional Status No functional status results. Allergies, Adverse Reactions, Alerts No known allergies. Immunizations Query Response on File Recorded Date/Time Influenza Vaccine Hx 201501/05/17 9:33pm Vital Signs Acute Vital Signs Vital Response Date/Time Pulse Rate (adult) 56 bpm (60 - 100) 01/05/2017 10:30pm Respiratory Rate 13 breaths/min (10 - 20) 01/05/2017 10:30pm O2 Sat by Pulse Oximetry 95 % (90 - 100) 01/05/2017 10:30pm Blood Pressure 156/77 mm Hg 01/05/2017 10:30pm Height (Feet) 6 feet 01/05/2017 9:08pm Height (Inches) 0 inches 01/05/2017 9:08pm Weight (Kilograms) 99.000 kg 01/05/2017 9:08pm Body Mass Index (BMI) 29.0 01/05/2017 9:08pm Results Laboratory Results Test Name Result Units Flags Reference Collection Date/Time Result Date/ Time Comments White Blood Count 6.7 T/MM3 4.5-11.0 01/05/2017 9:25pm 01/05/2017 9: 40pm Red Blood Count 4.71 M/MM3 4.50-5.90 01/05/2017 9:25pm 01/05/2017 9: 40pm Hemoglobin 14.4 GM/DL 13.5-17.5 01/05/2017 9:25pm 01/05/2017 9:40pm Hematocrit 42.2 % 41-53 01/05/2017 9:01/05/2017 9:40pm Mean Corpuscular Volume 89.6 UM3 80-100 01/05/2017 9:01/05/2017 9: 40pm Mean Corpuscular Hemoglobin 30.6 UUG 26-34 01/05/2017 9:2016 9:40pm Mean Corpuscular Hemoglobin Concent 34.1 GM/DL 31-37 01/05/2017 9:01/05/2017 9:40pm RDW Standard Deviation 42.6 FL 36.9-50.2 01/05/2017 9:01/05/2017 9 :40pm Platelet Count 194 T/MM3 130-400 01/05/2017 9:01/05/2017 9:40pm Mean Platelet Volume 9.3 UM3 L 9.4-12.4 01/05/2017 9:01/05/2017 9: 40pm Neutrophils (%) (Auto) 64.0 % 33-66 01/05/2017 9:01/05/2017 9: 40pm Lymphocytes (%) (Auto) 23.2 % 23-45 01/05/2017 9:01/05/2017 9: 40pm Monocytes (%) (Auto) 9.2 % H 0-9.0 01/05/2017 9:pm 01/05/2017 9:40pm Eosinophils (%) (Auto) 2.7 % 0-4 01/05/2017 9:01/05/2017 9:40pm Basophils (%) (Auto) 0.6 % 0-2 01/05/2017 9:01/05/2017 9:40pm Immature Granulocyte % (Auto) 0.3 % 0.0-0.5 01/05/2017 9:2016 9:40pm Absolute Neutrophils (auto) 4.3 T/MM3 1.8-7.7 01/05/2017 9:pm 2016 9:40pm Absolute Lymphocytes (auto) 1.6 T/MM3 1-4.8 01/05/2017 9:pm 2016 9:40pm Absolute Monocytes (auto) 0.6 T/MM3 0-0.8 01/05/2017 9:25pm 01/05/2017 9:40pm Absolute Eosinophils (auto) 0.2 T/MM3 0-0.5 01/05/2017 9:25pm 2016 9:40pm Absolute Basophils (auto) 0.0 T/MM3 0-0.2 01/05/2017 9:25pm 01/05/2017 9:40pm Absolute Immature Granulocyte (auto 0.02 T/MM3 0.00-0.03 01/05/2017 9: 25pm 01/05/2017 9:40pm Icterus Index < 2 0-7 01/05/2017 9:25pm 01/05/2017 9:50pm Chemistry Specimen Hemolysis < 15 0-25 01/05/2017 9:25pm 01/05/2017 9 :50pm 0-25: Specimen Exhibited No Hemolysis. Turbidity 28 H 0-20 01/05/2017 9:25pm 01/05/2017 9:50pm 0-21: Turbidity not present. 22-999: Turbidity present - Gross turbidity can falsely decrease Lipase and Triglycerides. Sodium Level 142 MEQ/L 134-144 01/05/2017 9:25pm 01/05/2017 9:50pm Potassium Level 4.1 MEQ/L 3.6-5 01/05/2017 9:25pm 01/05/2017 9:50pm Chloride Level 109 MEQ/L H 98-107 01/05/2017 9:25pm 01/05/2017 9:50pm Carbon Dioxide Level 23 MEQ/L 22-30 01/05/2017 9:25pm 01/05/2017 9: 50pm Anion Gap 10 MEQ/L 5-01/05/2017 9:25pm 01/05/2017 9:50pm Blood Urea Nitrogen 23.0 MG/DL H 9-01/05/2017 9:25pm 01/05/2017 9: 50pm Creatinine 1.2 MG/DL 0.8-1.5 01/05/2017 9:25pm 01/05/2017 9:50pm BUN/Creatinine Ratio 19 RATIO 6-26 01/05/2017 9:25pm 01/05/2017 9:50pm Glomerular Filtration Rate Calc 60 01/05/2017 9:25pm 01/05/2017 9: 50pm Glucose Level 209 MG/DL H 75-110 01/05/2017 9:2501/05/2017 9:50pm Calculated Osmolality 283 MOSM/KG H 261-280 01/05/2017 9:25pm 2016 9:50pm Calcium Level 9.2 MG/DL 8.4-10.2 01/05/2017 9:25pm 01/05/2017 9:50pm Total Bilirubin 0.70 MG/DL 0.20-1.30 01/05/2017 9:25pm 01/05/2017 9: 50pm Alkaline Phosphatase 127 U/L H 38-126 01/05/2017 9:pm 01/05/2017 9: 50pm Total Protein 6.7 G/DL 6.3-8.2 01/05/2017 9:25pm 01/05/2017 9:50pm Albumin 3.7 G/DL 3.5-5.0 01/05/2017 9:25pm 01/05/2017 9:50pm Globulin 3.0 G/DL 2.4-3.6 01/05/2017 9:25pm 01/05/2017 9:50pm Albumin/Globulin Ratio 1.2 RATIO 1.1-2.2 01/05/2017 9:25pm 01/05/2017 9 :50pm Aspartate Amino Transf (AST/SGOT) 26 U/L 17-59 01/05/2017 9:25pm 2016 9:50pm Alanine Aminotransferase (ALT/SGPT) 30 U/L 21-72 01/05/2017 9:25pm 9:50pm Troponin I < 0.012 ng/ml 0-0.12 01/05/2017 9:pm 01/05/2017 10:00pm Troponin values with a difference of 55% increase from orginal troponin value represent a true biological DELTA value. (%increase Calc=Orginal Troponin value, divided by subsequent Troponin value, multiplied by 100) Procedures No known history of procedures. Encounters Encounter Location Arrival/Admit Date Discharge/Depart Date Attending Provider Departed Emergency Room [facility] 01/05/17 9:08pm 01/05/17 11: 30pm ZAYRA FUENTES MD Recent Diagnosis
--- OUTSIDE RECORDS SUMMARY | 2017-01-11 19:37 | XMS REPORT | Continuity of Care Document ---
Author Author [facility] Organization [facility] Address Unknown Phone Unavailable Allergies Active Description Code Type Severity Reaction Onset Reported/Identified Relationship to Patient Clinical Status Yes NKA Drug Allergy N/A N/A Yes No Known Allergies 733769 3 N/A N/A 09/18/1009 Yes No Known [...] Procedures Code [place] [address] X-RAY EXAM OF SHOULDER 02/26/2016 21461 OFFICE/OUTPATIENT VISIT NEW 02/26/2016 67391 OFFICE/OUTPATIENT VISIT EST 04/01/2016 17667 SHOULDER ARTHROSCOPY/SURGERY 04/11/2016 42821 SHOULDER ARTHROSCOPY/SURGERY 04/11/2016 42039 SHOULDER ARTHROSCOPY/SURGERY 04/11/2016 79071 ARTHROSCOP ROTATOR CUFF REPR 04/11/2016 00761 X-RAY EXAM OF SHOULDER 05/24/2016 76440 POSTOP FOLLOW-UP VISIT 05/24/2016 Results Encounters ACCT No. Visit Date/Time Discharge Status Pt. Type Provider Facility Loc./Unit Complaint [id number] 09/05/2016 09:23:00 2015 11:52:00 DIS Outpatient Shaquille Gonzalez [facility] DS Gastro COLONP [id number] 08/16/2016 13:14:00 2015 23:59:00 DIS Outpatient Galdino Francis [facility] Sleep CP PST DIANE PT 2014 CPAP NEEDS SUPPLIES [id number] 12/01/2014 10:34:00 2014 23:59:00 DIS Outpatient Philip Zapata [facility] Sleep New 2 MO CK CPAP-MC CMPLNCE
--- OUTSIDE RECORDS SUMMARY | 2017-01-11 19:37 | XMS REPORT ---
Author Author [employer], SYSTEM Organization Unknown Address Unknown Phone Unavailable Care Team Providers Care Assembler For Puller Over Hand Name Role Phone MD ANYA, MARIO [phone] Reason For Visit Chief Complaint FOOT PAIN [...]
[2017-01-11 19:38] VITALS: Ht 182.9 cm; Wt 96.3 kg
--- NOTE | 2017-01-11 19:41 | NUR ---
EKG EKG OBTAINED
--- NOTE | 2017-01-11 19:51 | NUR ---
ASA ASA GIVEN TO CHEW AND SWALLOW
--- OUTSIDE RECORDS SUMMARY | 2017-01-11 19:55 | XMS REPORT | Continuity of Care Document ---
Author Author [facility] Organization [facility] Address Unknown Phone Unavailable Allergies Active Description Code Type Severity Reaction Onset Reported/Identified Relationship to Patient Clinical Status Yes NKA Drug Allergy N/A N/A Yes No Known Allergies 453923 3 N/A N/A 09/18/1009 Yes No Known [...] Procedures Code Description [place] [address] X-RAY EXAM OF SHOULDER 02/26/2016 23243 OFFICE/OUTPATIENT VISIT NEW 02/26/2016 60486 OFFICE/OUTPATIENT VISIT EST 04/01/2016 77509 SHOULDER ARTHROSCOPY/SURGERY 04/11/2016 02038 SHOULDER ARTHROSCOPY/SURGERY 04/11/2016 53081 SHOULDER ARTHROSCOPY/SURGERY 04/11/2016 30637 ARTHROSCOP ROTATOR CUFF REPR 04/11/2016 44583 X-RAY EXAM OF SHOULDER 05/24/2016 80551 POSTOP FOLLOW-UP VISIT 05/24/2016 Results Encounters ACCT No. Visit Date/Time Discharge Status Pt. Type Provider Facility Loc./Unit Complaint [id number] 09/05/2016 09:23:00 2015 11:52:00 DIS Outpatient Shaquille Gonzalez [facility] DS Gastro COLONP [id number] 08/16/2016 13:14:00 2015 23:59:00 DIS Outpatient Galdino Francis [facility] Sleep CP PST DIANE PT 2014 CPAP NEEDS SUPPLIES [id number] 12/01/2014 10:34:00 2014 23:59:00 DIS Outpatient Philip Zapata [facility] Sleep New 2 MO CK CPAP-MC CMPLNCE
--- NOTE | 2017-01-11 19:56 | NUR ---
IVL IVL STARTED IN THE LEFT HAND WITH #[id number], FIRST ATTEMPT BLOOD OBTAINED FOR LAB PT SARAH WELL
--- OUTSIDE RECORDS SUMMARY | 2017-01-11 19:56 | XMS REPORT ---
Author Author [employer], SYSTEM Organization Unknown Address Unknown Phone Unavailable Care Team Providers Care Hangersmith Name Role Phone MD ANYA, MARIO [phone] Reason For Visit Chief Complaint FOOT PAIN [...]
[2017-01-11] MEDS ORDERED: NORMAL SALINE 1,000 ML IV ONE (20:00)
--- NOTE | 2017-01-11 20:00 | NUR ---
BGM BGM=92MG/DL
--- NOTE | 2017-01-11 20:03 | ERPDOC ---
Departure Disposition Decision Date: Jan 11, 2017 Disposition Decision Time: 21:02 Disposition: 01 DISCHARGED HOME, SELF-CARE Impression Impression Impression: Primary Impression: Intermittent palpitations Severity: Moderate Condition: Improved Seen By: Physician only Referrals: MARIO JOYNER (Family) Patient Instructions: Palpitations (ED) Problems/Meds/Labs Reviewed?: Yes Medications reviewed and manag: Yes Additional Instructions: Encourage fluids, not just water, follow-up with your PCP or dynamic balancer set up worker as scheduled Follow up care ordered?: Yes Mental Status: Alert, Oriented HPI - Cardiac General Chief Complaint: Palpitations Stated Complaint: IRREGULAR HEART BEAT Time Seen by Provider: 19:50 Source: patient, family Exam Limitations: no limitations HPI - Cardiac General Initial Comments Patient is a 67-year-old male presents emergency room for evaluation of weakness dizziness irregular beats of his heart. Patient was seen approximately one week ago for similar symptoms that are resolved by the time he got to the emergency department. Laboratories were noncontributory patient was instructed to follow-up with primary medical physician. Patient has scheduled appointment with dynamic balancer set up worker next month. Patient today was leaning over and suddenly felt weak and dizzy and felt his heart having palpitations and skipping beats again. Patient decided present to the ER for evaluation. On arrival patient does have the occasional PAC Aspirin Today: 81 mg x 4, provided by ED Allergies: Coded Allergies: No Known Allergies (Unverified , 01/11/17) Past History Past Medical History Metabolic: diabetes, hypercholesterolemia, hypertension Surgical History Denies Surgeries Social History Does patient use chewing tobac: No Second Hand Exposure: No Substance Use Type: does not use Alcohol Intake: none Review of Systems Constitutional Constitutional: dizziness, weakness, DENIES: appetite decrease, chills, fever Eyes Vision: DENIES: double vision, loss of visual barnett ENMT Sinuses: DENIES: congestion, rhinorrhea Mouth/Throat: DENIES: scratchy throat, sore throat Cardiovascular Cardiac: DENIES: chest pain, dyspnea on exertion Pulmonary Respiratory: DENIES: cough, dyspnea, sputum, tachypnea GI Upper Abdomen: nausea, DENIES: pain, vomiting Lower Abdomen: DENIES: constipation, diarrhea, pain General: DENIES: frequency, urgency Musculoskeletal General: DENIES: cramps, pain, weakness Integumentary Skin: DENIES: color change, itching, rash Endocrine Endocrine: DENIES: heat/cold intolerance Hematologic/Lymphatic Hematologic/Lymphatic: DENIES: anemia Physical Exam General General Nourishment: well nourished, well developed General Body Habitus: well groomed Vitals and Pain First Documented Vital Signs Date Time Temp Pulse Resp B/P Pulse Ox O2 Delivery O2 Flow Rate FiO2 01/11/17 19:38 97.6 64 16 153/71 99 Room Air Weight: Kilograms: Height (feet): 6 Height (inches): 0 Triage Pain Scale: RN VS reviewed by Provider: Yes Eyes (brief) Eyes Brief: found: EOMI, PERRL ENMT (brief) ENMT Brief: FOUND: TM clear, TM good light reflex, ear canals clear, mucosa moist, normal dentition, NOT FOUND: nasal erythema, nasal exudate, nasal swelling Neck (brief) Neck: NOT FOUND: adenopathy, spasm, tenderness Respiratory (brief) Respiratory: FOUND: clear all barnett, equal bilaterally, NOT FOUND: rales, wheezes Cardiovascular (brief) Cardiac: FOUND: regular rate, regular rhythm Capillary Refill: <2 sec Abdomen (brief) Abdominal Brief: FOUND: bowel normo active x4, soft, NOT FOUND: distended, tender Lymphatic (brief) Lymphatic Brief: NOT FOUND: adenopathy Musculoskeletal (brief) Musculoskeletal Brief: NOT FOUND: spasm, tenderness Integumentary (brief) Integumentary Brief: FOUND: dry, pink, warm, NOT FOUND: rash Neurologic (brief) Neurological Brief: FOUND: CN w/o gross def to obs, motor-no gross deficits, sensory-no gross deficits Psychiatric (brief) Psychiatric Brief: FOUND: alert, oriented Differential Diagnoses Considering: Acute MS, Anxiety/Panic, Angina, Atrial Fibrillation, Bradycardia , Brugada Syndrome, CHF, Heart Block, Pericarditis, Prolonged Qtc, PSVT, Pulmonary Edema, Ventricular Tachycardia, WPW Progress Results/Orders Orders Procedure Category Date Status Time EKG EKG 01/11/17 Taken 19:33 Cbc W/Auto LAB 01/11/17 Complete Diff-Reflex Manual 19:50 Bmp - Basic Metabolic LAB 01/11/17 Complete Panel 19:50 Probnp LAB 01/11/17 Complete 19:50 Troponin I W LAB 01/11/17 Complete Hemolysis Index 19:50 Magnesium LAB 01/11/17 Complete 19:50 Iv Lock (Ed Only) EDM 01/11/17 Transmitted 19:50 Normal Saline (Normal PHA 01/11/17 Complete Saline Iv) 20:00 Aspirin (Asa) PHA 01/11/17 Complete 20:15 Lab Results Laboratory Tests Test 01/11/17 20:00 White Blood Count 5.8T/MM3 Red Blood Count 4.94M/MM3 Hemoglobin 15.3GM/DL Hematocrit 43.5% Mean Corpuscular Volume 88.1UM3 Mean Corpuscular Hemoglobin 31.0UUG Mean Corpuscular Hemoglobin Concent 35.2GM/DL RDW Standard Deviation 41.6FL Platelet Count 191T/MM3 Mean Platelet Volume 9.4UM3 Immature Granulocyte % (Auto) 0.2% Neutrophils (%) (Auto) 43.7% Lymphocytes (%) (Auto) 41.7% Monocytes (%) (Auto) 11.1% Eosinophils (%) (Auto) 2.6% Basophils (%) (Auto) 0.7% Absolute Immature Granulocyte (auto 0.01T/MM3 Absolute Neutrophils (auto) 2.5T/MM3 Absolute Lymphocytes (auto) 2.4T/MM3 Absolute Monocytes (auto) 0.6T/MM3 Absolute Eosinophils (auto) 0.2T/MM3 Absolute Basophils (auto) 0.0T/MM3 Turbidity < 20 Sodium Level 145MEQ/L Potassium Level 4.2MEQ/L Chloride Level 108MEQ/L Carbon Dioxide Level 23MEQ/L Anion Gap 14MEQ/L Blood Urea Nitrogen 17.0MG/DL Creatinine 1.1MG/DL Glomerular Filtration Rate Calc 66 BUN/Creatinine Ratio 16RATIO Glucose Level 101MG/DL Glucometer 92mg/dL Calculated Osmolality 281MOSM/KG Calcium Level 9.3MG/DL Magnesium Level 2.0MG/DL Icterus Index < 2 Troponin I < 0.012ng/ml FQ-Lne-V-Type Natriuretic Peptide 64PG/ML Chemistry Specimen Hemolysis 42 Medications Current ED Medications Sodium Chloride (Normal Saline IV) 1,000 ml @ 999 mls/hr Q1H1M ONCE IV Last administered on 01/11/17 20:08; Start 01/11/17 at 20:00; Stop 01/11/17 at 21:00 ; Status DC Aspirin (ASA) 324 mg O ONCE PO Last administered on 01/11/17 19:51; Start at 20:15; Stop 01/11/17 at 20:16; Status DC Progress Progress Patient's PVCs resolved with 500 mL normal saline bolus laboratories are noncontributory. We'll discharge patient home, patient is instructed to follow- up with cardiology as scheduled would recommend low glucose electrolyte replacement fluid EKG EKG : Rate: <60 Rhythm: sinus [place]: normal QRS: normal Intervals: normal ST/T: non-specific changes Other: PVC Interpreted by: signing physician LUIS DELUNA MD Jan 11, 2017 20:03
--- NOTE | 2017-01-11 20:08 | NUR ---
IV FLUID #1 IV 1000CC NS STARTED AT 999CC/HR FOR 500CC BOLUS IV SITE WITHOUT REDNESS OR SWELLING
[2017-01-11 20:12] LABS: BASOPHILS % (AUTO) 0.7 % (0-2); EOSINOPHILS # (AUTO) 0.2 T/MM3 (0-0.5); EOSINOPHILS % (AUTO) 2.6 % (0-4); HCT - HEMATOCRIT 43.5 % (41-53); HGB - HEMOGLOBIN 15.3 GM/DL (13.5-17.5); IMMATURE GRANULOCYTE # (AUTO) 0.01 T/MM3 (0.00-0.03); IMMATURE GRANULOCYTE % (AUTO) 0.2 % (0.0-0.5); LYMPHOCYTES # (AUTO) 2.4 T/MM3 (1-4.8); LYMPHOCYTES % (AUTO) 41.7 % (23-45); MEAN CORPUSCULAR HGB CONC(MCHC 35.2 GM/DL (31-37); MEAN CORPUSCULAR VOLUME 88.1 UM3 (80-100); MEAN PLATELET VOLUME 9.4 UM3 (9.4-12.4); MONOCYTES # (AUTO) 0.6 T/MM3 (0-0.8); MONOCYTES % (AUTO) 11.1 % (0-9.0); NEUTROPHILS #(AUTO)-ABSOLUTE 2.5 T/MM3 (1.8-7.7); NEUTROPHILS % (AUTO) 43.7 % (33-66); RED BLOOD COUNT 4.94 M/MM3 (4.50-5.90); WBC - WHITE BLOOD COUNT 5.8 T/MM3 (4.5-11.0)
[2017-01-11] MEDS ORDERED: ASPIRIN 81 MG CHEWABLE TABLET PO ONE (20:15)
[2017-01-11 20:18] LABS: ANION GAP 14 MEQ/L (5-15); BUN/CREATININE RATIO 16 RATIO (6-26); CALCIUM 9.3 MG/DL (8.4-10.2); CHLORIDE 108 MEQ/L (98-107); CO2 - CARBON DIOXIDE 23 MEQ/L (22-30); CREATININE 1.1 MG/DL (0.8-1.5); GLOMERULAR FILTRATION RATE 66; GLUCOSE 101 MG/DL (75-110); POTASSIUM 4.2 MEQ/L (3.6-5); SODIUM 145 MEQ/L (134-144)
[2017-01-11 20:29] LABS: PROBNP 64 PG/ML (0-175)
--- NOTE | 2017-01-11 21:07 | NUR ---
PROVIDER DR. DELUNA AT BEDSIDE TO SPEAK WITH PT.
[2017-01-11 21:26] VITALS: BP 150/75; PULSE 49; RESP 16; TEMP 97.6; O2SAT 98
--- NOTE | 2017-01-11 21:26 | NUR ---
DISCHARGE WRITTEN INSTRUCTIONS REVIEWED AND SENT WITH PT. PT VERBALIZES UNDERSTANDING OF DI, DENIES QUESTIONS. PT REPORTS IMPROVEMENT IN FEELING OF WEAKNESS AND DENIES PALPITATIONS UPON DISCHARGE. PT AMBULATES TO LOBBY WITH STEADY GAIT ACCOMP BY SPOUSE AT THIS TIME.
== END 2017-01-11 21:26 | disposition home or self-care (01) ==
LOC: ED 19:32
DX: R00.2 Palpitations (principal); R42 Dizziness and giddiness; R53.1 Weakness; I10 Essential (primary) hypertension; E78.00 Pure hypercholesterolemia, unspecified
CPT/HCPCS: 80048; 82948; 83735; 83880; 84484; 85025; 93005; 96360; 99284; A9270; J7030